=== PATIENT | female | born 1980 | race Caucasian/White ===

== ENCOUNTER 2024-03-25 07:46 | Inpatient (IN) | payer OTHER ==
[~2024-03-25] VITALS: Ht 170.2 cm; Wt 85.7 kg
[2024-03-25] MEDS ORDERED: ONDANSETRON HCL/PF 4 MG/2 ML VIAL ONE (08:12)
[2024-03-25] MEDS ORDERED: HYDROMORPHONE 1 MG/1 ML DISP.SYRIN ONE (08:13)
[2024-03-25] MEDS: ONDANSETRON HCL/PF 4 MG/2 ML VIAL IVP ONE (08:25)
[2024-03-25] MEDS: IV NS 0.9% 1,000 ML BAG IV ONE ×2 (08:30→09:45)
[2024-03-25 08:38] LABS: BILIRUBIN,URINE NEGATIVE (NEGATIVE); BLOOD, URINE LARGE Ery/uL (NEGATIVE); KETONES,URINE NEGATIVE (NEGATIVE); LEUKOCYTE ESTERASE ,URINE MODERATE (NEGATIVE); NITRITE, URINE NEGATIVE (NEGATIVE); PH,URINE 6.5 (5.0-8.0); PROTEIN,URINE 30 mg/dl (NEGATIVE); UGLUCOSE >=1000 mg/dL (NEGATIVE); UROBILINOGEN,URINE 0.2 EU/dL (0.2)
[2024-03-25 08:39] LABS: BASOPHILS % (AUTO) 0.5 % (0.0-2.0); EOSINOPHILS # (AUTO) 0.2 K/uL (0.0-0.7); EOSINOPHILS % (AUTO) 1.6 % (0.0-6.0); HEMATOCRIT 35 % (33-45); HEMOGLOBIN 11.5 g/dL (11.5-14.8); LYMPHOCYTES # (AUTO) 1.2 K/uL (0.8-4.8); LYMPHOCYTES % (AUTO) 12.7 % (20.0-44.0); MEAN CORPUSCULAR HEMOGLOBIN 29 PG (26.0-33.0); MEAN CORPUSCULAR HGB CONC 33 g/dl (31.0-36.0); MEAN CORPUSCULAR VOLUME 87 fL (82-100); MONOCYTES # (AUTO) 0.6 K/uL (0.1-1.30); MONOCYTES % (AUTO) 6.1 % (2.0-12.0); NEUTROPHILS # (AUTO) 7.3 K/uL (1.8-8.9); NEUTROPHILS % (AUTO) 79.1 % (43.0-81.0); PLATELET COUNT (AUTO) 348 K/uL (150-450); RED BLOOD CELL COUNT(AUTO) 4.03 MIL/uL (4.0-5.2); RED CELL DISTRIBUTION WIDTH 14.1 % (11.5-15.0); WHITE BLOOD COUNT (AUTO) 9.3 K/uL (4.3-11.0)
[2024-03-25 08:40] LABS: PREGNANCY TEST URINE QUAL NEGATIVE (NEGATIVE)
[2024-03-25] MEDS: HYDROMORPHONE INJ 2 MG/ML DISP.SYRIN IV ONE (08:40)
[2024-03-25 08:57] LABS: APPEARANCE,URINE HAZY (CLEAR)
[2024-03-25 08:58] LABS: COLOR,URINE LIGHT RED (YELLOW)
[2024-03-25 09:01] LABS: ALANINE AMINOTRANSFERASE 22 U/L (12-78); ALBUMIN 3.3 g/dL (3.4-5.0); ALKALINE PHOSPHATASE 57 U/L (46-116); ASPARTATE AMINOTRANSFERASE 8 U/L (15-37); BILIRUBIN,DIRECT 0.1 mg/dL (0.0-0.2); BILIRUBIN,TOTAL 0.2 mg/dL (0.2-1.0); CALCIUM, SERUM 8.6 mg/dL (8.5-10.1); CARBON DIOXIDE 19 mmol/L (21-32); CHLORIDE 104 mmol/L (98-107); CREATININE 0.9 mg/dL (0.6-1.3); LIPASE 117 U/L (16-77); SODIUM SERUM 136 mmol/L (136-145); TOTAL PROTEIN, SERUM 6.6 g/dL (6.4-8.2); UREA NITROGEN, BLOOD 13 mg/dL (7-18)
[2024-03-25 09:03] LABS: ADD URINE CULTURE YES
[2024-03-25 09:07] LABS: SQUAMOUS EPITHELIAL CELL,UR Many /HPF (None Seen)
[2024-03-25 09:11] LABS: GLUCOSE 457 mg/dL (74-106); LACTIC ACID 4.6 mmol/L (0.4-2.0)
[2024-03-25 09:17] LABS: BACTERIA,URINE Few /HPF (None Seen)
[2024-03-25] MEDS: INSULIN REGULAR, HUMAN 100 UNIT/ML 10 ML VIAL IV ONE (09:23)
[2024-03-25] MEDS: CEFTRIAXONE 1GM BAG (ER ONLY) 50 ML IV ONE (09:30)
[2024-03-25] MEDS ORDERED: DEXTROSE 50%-WATER 50 ML DISP.SYRIN IV PRN ×2 (10:00→13:00)
[2024-03-25] MEDS ORDERED: ONDANSETRON HCL/PF 4 MG/2 ML VIAL IVP PRN (10:00)
[2024-03-25 10:20] VITALS: BP 115/81; TEMP 97.8; O2SAT 96
[2024-03-25] MEDS: IV 1/2NS 1000 ML 1,000 ML IV SCH (10:58)
[2024-03-25] MEDS: BLOOD SUGAR DIAGNOSTIC 1 EACH STRIP IN SCH (10:59)
[2024-03-25] MEDS: ENOXAPARIN SODIUM 40 MG/0.4 ML DISP.SYRIN SQ SCH (10:59)
[2024-03-25] MEDS: INSULIN REGULAR, HUMAN 100 UNIT/ML 3 ML VIAL SQ PRN ×2 (11:22→17:12)
[2024-03-25 12:24] LABS: CALCIUM, SERUM 8.3 mg/dL (8.5-10.1); CREATININE 0.6 mg/dL (0.6-1.3); POTASSIUM 3.9 mmol/L (3.5-5.1)
[2024-03-25 12:30] VITALS: BP 117/76; TEMP 97.7; O2SAT 97
[2024-03-25] MEDS: ACETAMINOPHEN 325 MG TABLET PO PRN (13:18)
[2024-03-25 16:07] VITALS: BP 114/78; TEMP 98.2; O2SAT 96
[2024-03-25] MEDS: MORPHINE SULFATE INJ 2 MG/ML DISP.SYRIN IV PRN (16:15)
[2024-03-25] MEDS: BLOOD SUGAR DIAGNOSTIC 1 EACH STRIP VI SCH (17:11)
[2024-03-25 20:00] VITALS: BP_SYST 107; BP_SYST 96; BP_DIAS 64; BP_DIAS 66; TEMP 98.1; TEMP 98.2; O2SAT 100; O2SAT 97
[2024-03-25] MEDS: *INSULIN REGULAR(HUMULIN R)HUM 100 UNIT/ML VIAL SQ PRN (22:10)
[2024-03-26] VITALS: BP 96/66; TEMP 98.1; O2SAT 100
[2024-03-26 04:00] VITALS: BP 115/74; TEMP 98.2; O2SAT 100
[2024-03-26 08:00] VITALS: BP 115/78; TEMP 98.2; O2SAT 95
[2024-03-26] MEDS: OLANZAPINE 5 MG TABLET PO SCH (08:27)
[2024-03-26] MEDS: METFORMIN 500 MG TABLET PO SCH (08:27)
[2024-03-26] MEDS: VENLAFAXINE XR 75 MG CAP.SR.24H PO SCH (08:27)
[2024-03-26] MEDS: LEVOTHYROXINE SODIUM 50 MCG TABLET PO SCH (08:28)
[2024-03-26] MEDS: busPIRone 5 MG TABLET PO SCH (08:28)
[2024-03-26] MEDS: TOPIRAMATE 100 MG TABLET PO SCH (08:28)
[2024-03-26] MEDS: predniSONE 5 MG TABLET PO SCH ×2 (08:29)
[2024-03-26] MEDS: METOPROLOL TARTRATE 25 MG TABLET PO SCH (08:29)
[2024-03-26] MEDS: GABAPENTIN 400 MG CAPSULE PO SCH (08:29)
[2024-03-26] MEDS ORDERED: PRED5TAB PO (08:54)
[2024-03-26] MEDS ORDERED: METO25TA6 PO (08:54)
[2024-03-26] MEDS ORDERED: LEVO50TA8 PO (08:54)
[2024-03-26] MEDS ORDERED: PANT20TA17 PO (08:54)
[2024-03-26] MEDS ORDERED: VENL225T PO (08:54)
[2024-03-26] MEDS ORDERED: METF-836 PO (08:54)
[2024-03-26] MEDS ORDERED: BUSP15TA3 PO (08:54)
[2024-03-26] MEDS ORDERED: HYDR200T81 PO (08:54)
[2024-03-26] MEDS ORDERED: OLAN5TAB6 PO (08:54)
[2024-03-26] MEDS ORDERED: OLAN10TA6 PO (08:54)
[2024-03-26] MEDS ORDERED: GABA600T12 PO (08:54)
[2024-03-26] MEDS ORDERED: TRAZ-182 PO (08:54)
[2024-03-26] MEDS ORDERED: TOPI100T38 PO (08:54)
[2024-03-26 08:56] LABS: BASOPHILS % (AUTO) 0.6 % (0.0-2.0); EOSINOPHILS # (AUTO) 0.2 K/uL (0.0-0.7); EOSINOPHILS % (AUTO) 3.2 % (0.0-6.0); HEMATOCRIT 35 % (33-45); HEMOGLOBIN 11.1 g/dL (11.5-14.8); LYMPHOCYTES # (AUTO) 2.3 K/uL (0.8-4.8); LYMPHOCYTES % (AUTO) 30.6 % (20.0-44.0); MEAN CORPUSCULAR HEMOGLOBIN 28 PG (26.0-33.0); MEAN CORPUSCULAR HGB CONC 32 g/dl (31.0-36.0); MEAN CORPUSCULAR VOLUME 88 fL (82-100); MONOCYTES # (AUTO) 0.5 K/uL (0.1-1.30); MONOCYTES % (AUTO) 6.1 % (2.0-12.0); NEUTROPHILS # (AUTO) 4.4 K/uL (1.8-8.9); NEUTROPHILS % (AUTO) 59.5 % (43.0-81.0); PLATELET COUNT (AUTO) 296 K/uL (150-450); RED BLOOD CELL COUNT(AUTO) 3.91 MIL/uL (4.0-5.2); WHITE BLOOD COUNT (AUTO) 7.4 K/uL (4.3-11.0)
[2024-03-26 09:06] LABS: PHOSPHORUS 3.2 mg/dL (2.5-4.9)
[2024-03-26] MEDS: HYDROXYCHLOROQUINE 200 MG TABLET PO SCH (09:21)
[2024-03-26] MEDS: CEFTRIAXONE 1 G in IV D5W 50 ML IV SCH (09:24)
[2024-03-26 12:00] VITALS: TEMP 98.3
[2024-03-26 16:00] VITALS: BP 115/78; TEMP 97.5; O2SAT 96
[2024-03-26 20:00] VITALS: BP 113/81; TEMP 97.7; O2SAT 96
[2024-03-26] MEDS: TRAZODONE 50 MG TABLET PO SCH (21:28)
[2024-03-27 04:00] VITALS: BP 107/77; TEMP 98.1; O2SAT 98
[2024-03-27 08:00] VITALS: BP 100/72; TEMP 97.7; O2SAT 98
[2024-03-27 08:14] VITALS: BP 110/72
[2024-03-27] MEDS ORDERED: SULF1TAB48 PO (10:18)
== END 2024-03-27 10:49 | disposition home or self-care (01) | DRG 463 ==
LOC: ER 08:00 → MEDSG1 10:07 → TELE-TD 10:17 → TELE1 12:59 → MEDSG1 03-26 10:33
PROVIDERS: ADMIT Internal Medicine; ATTEND Internal Medicine
DX: N39.0 Urinary tract infection, site not specified (principal); E87.20 Acidosis, unspecified; M32.9 Systemic lupus erythematosus, unspecified; E11.65 Type 2 diabetes mellitus with hyperglycemia; B96.89 Other specified bacterial agents as the cause of diseases classified elsewhere; Z79.52 Long term (current) use of systemic steroids; Z79.84 Long term (current) use of oral hypoglycemic drugs; Z86.79 Personal history of other diseases of the circulatory system; Z88.8 Allergy status to other drugs, medicaments and biological substances; Z79.890 Hormone replacement therapy; Z79.899 Other long term (current) drug therapy
CPT/HCPCS: 36415; 80048-TC; 80076-TC; 81001; 82962-TC; 83605-TC; 83690-TC; 83735-TC; 84100-TC; 84703-TC; 85025-TC; 87040-TC; 87086-TC; A4223; G0378; J0696; J1171; J1650; J1815; J2270; J2405; J3490; J7030; J7060; J7512

== ENCOUNTER 2024-03-29 06:14 | Emergency (ER) | payer OTHER ==
[~2024-03-29] VITALS: Ht 167.6 cm; Wt 79.4 kg
[~2024-03-29 06:14] MED LIST: BUSP15TA3 PO; GABA600T12 PO; HYDR200T81 PO; LEVO50TA8 PO; METF-836 PO; METO25TA6 PO; OLAN10TA6 PO; OLAN5TAB6 PO; PANT20TA17 PO; PRED5TAB PO; SULF1TAB48 PO; TOPI100T38 PO; TRAZ-182 PO; VENL225T PO
[2024-03-29] MEDS: IV NS 0.9% 1,000 ML BAG IV ONE (06:30)
[2024-03-29 06:59] LABS: BASOPHILS # (AUTO) 0.1 K/uL (0.0-0.2); BASOPHILS % (AUTO) 0.8 % (0.0-2.0); EOSINOPHILS # (AUTO) 0.3 K/uL (0.0-0.7); EOSINOPHILS % (AUTO) 2.5 % (0.0-6.0); HEMATOCRIT 36 % (33-45); HEMOGLOBIN 11.9 g/dL (11.5-14.8); LYMPHOCYTES # (AUTO) 2.1 K/uL (0.8-4.8); LYMPHOCYTES % (AUTO) 17.4 % (20.0-44.0); MEAN CORPUSCULAR HEMOGLOBIN 29 PG (26.0-33.0); MEAN CORPUSCULAR HGB CONC 33 g/dl (31.0-36.0); MEAN CORPUSCULAR VOLUME 86 fL (82-100); MONOCYTES # (AUTO) 0.7 K/uL (0.1-1.30); NEUTROPHILS # (AUTO) 8.7 K/uL (1.8-8.9); NEUTROPHILS % (AUTO) 73.3 % (43.0-81.0); PLATELET COUNT (AUTO) 343 K/uL (150-450); RED BLOOD CELL COUNT(AUTO) 4.18 MIL/uL (4.0-5.2); RED CELL DISTRIBUTION WIDTH 14.1 % (11.5-15.0); WHITE BLOOD COUNT (AUTO) 11.9 K/uL (4.3-11.0)
[2024-03-29 07:10] LABS: APPEARANCE,URINE CLEAR (CLEAR); BILIRUBIN,URINE NEGATIVE (NEGATIVE); BLOOD, URINE TRACE-INTA Ery/uL (NEGATIVE); COLOR,URINE YELLOW (YELLOW); KETONES,URINE NEGATIVE (NEGATIVE); LEUKOCYTE ESTERASE ,URINE 3+ (NEGATIVE); NITRITE, URINE NEGATIVE (NEGATIVE); PROTEIN,URINE NEGATIVE (NEGATIVE); UGLUCOSE NEGATIVE (NEGATIVE); UROBILINOGEN,URINE 0.2 EU/dL (0.2)
[2024-03-29 07:14] LABS: PREGNANCY TEST URINE QUAL NEGATIVE (NEGATIVE)
[2024-03-29 07:16] LABS: ALBUMIN 3.6 g/dL (3.4-5.0); BILIRUBIN,DIRECT 0.1 mg/dL (0.0-0.2); BILIRUBIN,TOTAL 0.2 mg/dL (0.2-1.0); CALCIUM, SERUM 9.4 mg/dL (8.5-10.1); CREATININE 0.8 mg/dL (0.6-1.3); POTASSIUM 4.2 mmol/L (3.5-5.1); TOTAL PROTEIN, SERUM 6.8 g/dL (6.4-8.2)
[2024-03-29 07:37] LABS: ADD URINE CULTURE YES; BACTERIA,URINE 1+ /HPF (None Seen); WBC,URINE 21-50 /HPF (0-3); YEAST,URINE Hyphal filaments /HPF (None Seen)
[2024-03-29] MEDS ORDERED: ONDANSETRON HCL/PF 4 MG/2 ML VIAL ONE (08:35)
[2024-03-29] MEDS ORDERED: KETOROLAC TROMETHAMINE 15 MG/ML VIAL ONE (08:35)
[2024-03-29] MEDS: ONDANSETRON HCL/PF 4 MG/2 ML VIAL IV ONE (08:41)
[2024-03-29] MEDS: KETOROLAC TROMETHAMINE 15 MG/ML VIAL IV ONE (08:43)
[2024-03-29] MEDS ORDERED: CEFTRIAXONE 1GM BAG (ER ONLY) 50 ML IV ONE (09:31)
[2024-03-29] MEDS ORDERED: FLUCONAZOLE (100 MG) 100 MG TABLET ONE ×2 (09:31→09:44)
[2024-03-29] MEDS: FLUCONAZOLE (100 MG) 100 MG TABLET PO ONE (09:41)
[2024-03-29] MEDS: CEFTRIAXONE 1 G in IV D5W 50 ML IV ONE (09:41)
[2024-03-29] MEDS ORDERED: MORPHINE SULFATE INJ 4 MG/ML DISP.SYRIN ONE (09:45)
[2024-03-29] MEDS ORDERED: PHENAZOPYRIDINE HCL 200 MG TABLET ONE (09:45)
[2024-03-29] MEDS: MORPHINE SULFATE INJ 2 MG/ML DISP.SYRIN IV ONE (09:51)
[2024-03-29] MEDS ORDERED: PHEN-704 PO (09:59)
[2024-03-29] MEDS ORDERED: CEFD300C3 PO ×2 (09:59→18:30)
[2024-03-29] MEDS ORDERED: ONDA4TAB5 PO ×2 (10:00→18:30)
[2024-03-29] MEDS: PHENAZOPYRIDINE HCL 200 MG TABLET PO ONE (10:11)
[2024-03-29 10:29] VITALS: BP 106/69; TEMP 98.2; O2SAT 100
[2024-03-29] MEDS ORDERED: NITR100C6 PO (17:25)
[2024-03-29] MEDS ORDERED: IV NS 0.9% 250 ML IV ONE (17:42)
[2024-03-29] MEDS ORDERED: IOHEXOL-300 100 ML VIAL IV ONE (17:42)
== END 2024-03-29 10:31 | disposition home or self-care (01) ==
LOC: ER 06:19
DX: N39.0 Urinary tract infection, site not specified (principal); B37.9 Candidiasis, unspecified; R11.0 Nausea; E11.9 Type 2 diabetes mellitus without complications; Z79.52 Long term (current) use of systemic steroids; Z79.84 Long term (current) use of oral hypoglycemic drugs; Z79.899 Other long term (current) drug therapy; Z88.8 Allergy status to other drugs, medicaments and biological substances
CPT/HCPCS: 99285; 96365; 96375; 96361; 85025; 80048; 83690; 80076; 84703; 81001; 36415; J2270; J2405; J7030; J0696; J1885; J7050; Q9967

== ENCOUNTER 2024-03-29 16:21 | Emergency (ER) | payer OTHER ==
[~2024-03-29] VITALS: Ht 170.2 cm; Wt 83.9 kg
[~2024-03-29 16:21] MED LIST changes: +CEFD300C3 PO; +ONDA4TAB5 PO; +PHEN-704 PO
[2024-03-29 17:09] LABS: APPEARANCE,URINE Clear (CLEAR); BILIRUBIN,URINE Negative (NEGATIVE); BLOOD, URINE Small Ery/uL (NEGATIVE); COLOR,URINE YELLOW (YELLOW); KETONES,URINE Negative (NEGATIVE); LEUKOCYTE ESTERASE ,URINE Large (NEGATIVE); NITRITE, URINE Positive (NEGATIVE); PH,URINE 5.5 (5.0-8.0); PROTEIN,URINE Negative (NEGATIVE); UGLUCOSE 100 MG/DL mg/dL (NEGATIVE); UROBILINOGEN,URINE 0.2 EU/dL (0.2)
[2024-03-29 17:10] LABS: PREGNANCY TEST URINE QUAL NEGATIVE (NEGATIVE)
[2024-03-29 17:11] LABS: ADD URINE CULTURE YES; BACTERIA,URINE Few /HPF (None Seen); SQUAMOUS EPITHELIAL CELL,UR Few /HPF (None Seen)
[2024-03-29] MEDS ORDERED: NITR100C6 PO (17:25)
[2024-03-29 18:09] LABS: BASOPHILS % (AUTO) 0.5 % (0.0-2.0); EOSINOPHILS # (AUTO) 0.2 K/uL (0.0-0.7); EOSINOPHILS % (AUTO) 2.5 % (0.0-6.0); HEMATOCRIT 36 % (33-45); HEMOGLOBIN 11.5 g/dL (11.5-14.8); LYMPHOCYTES # (AUTO) 3.1 K/uL (0.8-4.8); LYMPHOCYTES % (AUTO) 31.5 % (20.0-44.0); MEAN CORPUSCULAR HEMOGLOBIN 29 PG (26.0-33.0); MEAN CORPUSCULAR HGB CONC 32 g/dl (31.0-36.0); MEAN CORPUSCULAR VOLUME 90 fL (82-100); MONOCYTES # (AUTO) 0.6 K/uL (0.1-1.30); MONOCYTES % (AUTO) 6.5 % (2.0-12.0); NEUTROPHILS # (AUTO) 5.8 K/uL (1.8-8.9); PLATELET COUNT (AUTO) 272 K/uL (150-450); RED BLOOD CELL COUNT(AUTO) 4.01 MIL/uL (4.0-5.2); RED CELL DISTRIBUTION WIDTH 14.6 % (11.5-15.0); WHITE BLOOD COUNT (AUTO) 9.9 K/uL (4.3-11.0)
[2024-03-29] MEDS ORDERED: TRAMADOL HCL 50 MG TABLET ONE ×2 (18:11→18:12)
[2024-03-29 18:17] LABS: CALCIUM, SERUM 8.8 mg/dL (8.5-10.1); CREATININE 0.8 mg/dL (0.6-1.3); POTASSIUM 3.6 mmol/L (3.5-5.1)
[2024-03-29] MEDS: TRAMADOL HCL 50 MG TABLET PO ONE (18:17)
[2024-03-29 18:26] LABS: ALBUMIN 3.4 g/dL (3.4-5.0); BILIRUBIN,TOTAL 0.2 mg/dL (0.2-1.0); TOTAL PROTEIN, SERUM 6.3 g/dL (6.4-8.2)
[2024-03-29] MEDS ORDERED: CEFD300C3 PO (18:30)
[2024-03-29] MEDS ORDERED: ONDA4TAB5 PO (18:30)
[2024-03-29] MEDS: ONDANSETRON HCL/PF 4 MG/2 ML VIAL IVP ONE (19:00)
[2024-03-29] MEDS: CEFEPIME 1 GM in IV D5W 50 ML IV ONE (19:05)
[2024-03-29] MEDS ORDERED: ONDANSETRON HCL/PF 4 MG/2 ML VIAL ONE (19:07)
[2024-03-29 20:52] VITALS: BP 126/70; TEMP 98.3; O2SAT 100
== END 2024-03-29 20:54 | disposition left against medical advice (07) ==
LOC: ER 16:24
DX: N39.0 Urinary tract infection, site not specified (principal); E11.9 Type 2 diabetes mellitus without complications; Z79.52 Long term (current) use of systemic steroids; Z79.84 Long term (current) use of oral hypoglycemic drugs; Z79.899 Other long term (current) drug therapy; Z90.49 Acquired absence of other specified parts of digestive tract; Z86.79 Personal history of other diseases of the circulatory system; Z86.59 Personal history of other mental and behavioral disorders; Z88.8 Allergy status to other drugs, medicaments and biological substances
CPT/HCPCS: 99285; 74177; 96365; 96375; 85025; 80048; 83690; 80076; 84703; 81001; 36415; J2405; J7060; J7050; A4223; J0692; Q9967

== ENCOUNTER 2024-04-18 14:53 | Emergency (ER) | payer OTHER ==
[~2024-04-18] VITALS: Ht 170.2 cm; Wt 85.3 kg
[~2024-04-18 14:53] MED LIST changes: -SULF1TAB48 PO
[2024-04-18] MEDS: IV NS 0.9% 1,000 ML BAG IV ONE (15:33)
[2024-04-18 15:47] LABS: BASOPHILS # (AUTO) 0.1 K/uL (0.0-0.2); BASOPHILS % (AUTO) 0.8 % (0.0-2.0); EOSINOPHILS # (AUTO) 0.3 K/uL (0.0-0.7); HEMATOCRIT 38 % (33-45); HEMOGLOBIN 12.5 g/dL (11.5-14.8); LYMPHOCYTES # (AUTO) 3.7 K/uL (0.8-4.8); LYMPHOCYTES % (AUTO) 35.2 % (20.0-44.0); MEAN CORPUSCULAR HEMOGLOBIN 28 PG (26.0-33.0); MEAN CORPUSCULAR HGB CONC 33 g/dl (31.0-36.0); MEAN CORPUSCULAR VOLUME 85 fL (82-100); MONOCYTES # (AUTO) 0.5 K/uL (0.1-1.30); MONOCYTES % (AUTO) 4.8 % (2.0-12.0); NEUTROPHILS % (AUTO) 56.2 % (43.0-81.0); PLATELET COUNT (AUTO) 371 K/uL (150-450); RED CELL DISTRIBUTION WIDTH 14.6 % (11.5-15.0); WHITE BLOOD COUNT (AUTO) 10.6 K/uL (4.3-11.0)
[2024-04-18 15:54] LABS: CALCIUM, SERUM 8.5 mg/dL (8.5-10.1); CREATININE 0.7 mg/dL (0.6-1.3); POTASSIUM 3.3 mmol/L (3.5-5.1)
[2024-04-18 16:21] LABS: PREGNANCY TEST URINE QUAL NEGATIVE (NEGATIVE)
[2024-04-18 17:02] VITALS: BP 114/92; TEMP 98.6; O2SAT 99
== END 2024-04-18 17:02 | disposition home or self-care (01) ==
LOC: ER 14:58
DX: R53.1 Weakness (principal); R42 Dizziness and giddiness; R11.0 Nausea; E11.9 Type 2 diabetes mellitus without complications; Z79.899 Other long term (current) drug therapy; Z86.59 Personal history of other mental and behavioral disorders; Z86.79 Personal history of other diseases of the circulatory system
CPT/HCPCS: 99285; 96360; 93005; 85025; 80048; 84703; 36415; 82962; J7030

== ENCOUNTER 2024-08-04 03:27 | Emergency (ER) | payer BC, OTHER ==
[~2024-08-04] VITALS: Ht 170.2 cm; Wt 86.2 kg
[2024-08-04] MEDS: IV NS 0.9% 1,000 ML BAG IV ONE (04:30)
[2024-08-04 05:01] LABS: BASOPHILS # (AUTO) 0.1 K/uL (0.0-0.2); EOSINOPHILS # (AUTO) 0.3 K/uL (0.0-0.7); EOSINOPHILS % (AUTO) 3.9 % (0.0-6.0); HEMATOCRIT 33 % (33-45); HEMOGLOBIN 10.7 g/dL (11.5-14.8); LYMPHOCYTES # (AUTO) 1.4 K/uL (0.8-4.8); LYMPHOCYTES % (AUTO) 20.2 % (20.0-44.0); MEAN CORPUSCULAR HEMOGLOBIN 25 PG (26.0-33.0); MEAN CORPUSCULAR HGB CONC 32 g/dl (31.0-36.0); MEAN CORPUSCULAR VOLUME 79 fL (82-100); MONOCYTES # (AUTO) 0.5 K/uL (0.1-1.30); MONOCYTES % (AUTO) 7.1 % (2.0-12.0); NEUTROPHILS # (AUTO) 4.7 K/uL (1.8-8.9); NEUTROPHILS % (AUTO) 67.8 % (43.0-81.0); PLATELET COUNT (AUTO) 326 K/uL (150-450); RED BLOOD CELL COUNT(AUTO) 4.22 MIL/uL (4.0-5.2)
[2024-08-04 05:10] LABS: APPEARANCE,URINE CLEAR (CLEAR); BILIRUBIN,URINE NEGATIVE (NEGATIVE); BLOOD, URINE NEGATIVE Ery/uL (NEGATIVE); COLOR,URINE ORANGE (YELLOW); KETONES,URINE NEGATIVE (NEGATIVE); LEUKOCYTE ESTERASE ,URINE TRACE (NEGATIVE); NITRITE, URINE POSITIVE (NEGATIVE); PROTEIN,URINE TRACE mg/dl (NEGATIVE); UGLUCOSE TRACE mg/dL (NEGATIVE)
[2024-08-04 05:18] LABS: CREATININE 0.9 mg/dL (0.6-1.3); POTASSIUM 3.9 mmol/L (3.5-5.1)
[2024-08-04] MEDS ORDERED: POLY119P2 PO (05:21)
[2024-08-04 05:31] LABS: ADD URINE CULTURE YES; BACTERIA,URINE 1+ /HPF (None Seen); CALCIUM OXALATE CRYSTALS,UR Rare /HPF (None Seen); MUCUS,URINE Moderate /LPF (None Seen); RBC,URINE NONE SEEN /HPF (0-2); SQUAMOUS EPITHELIAL CELL,UR 21-50 /HPF (None Seen)
[2024-08-04 05:47] VITALS: BP 107/71; TEMP 97.9; O2SAT 99
== END 2024-08-04 05:48 | disposition home or self-care (01) ==
LOC: ER 03:32
DX: K59.00 Constipation, unspecified (principal); R10.2 Pelvic and perineal pain; E11.9 Type 2 diabetes mellitus without complications; F32.A Depression, unspecified; F41.9 Anxiety disorder, unspecified; M32.9 Systemic lupus erythematosus, unspecified; Z79.52 Long term (current) use of systemic steroids; Z79.84 Long term (current) use of oral hypoglycemic drugs; Z79.899 Other long term (current) drug therapy; Z90.49 Acquired absence of other specified parts of digestive tract
CPT/HCPCS: 99284; 74176; 96360; 85025; 80048; 87086; 81001; 36415; J7030